=== PATIENT | female | born 1940 | race Caucasian/White ===

== ENCOUNTER 2020-10-14 14:08 | Emergency (ER) | payer OTHER ==
[~2020-10-14] VITALS: Ht 167.6 cm; Wt 82.4 kg
--- NOTE | ~2020-10-14 | EMS ---
[address] [address] EMS Patient Care Report Name: SILVANO BULL Room #: DEP MARIO Velasquez#: [id number] Admission: 10/14/20 Attend Phys: Discharge: 10/14/20 Date of : 36 Report #: [id number] THIS REPORT FOR: //name// Report Transmitted: 10/19/2020 09:43 EMS Care Summary [facility] Incident [id number] @ 10/14/2020 13:27 Incident Location [address]/[place] [address] Patient SILVANO BULL Female, 80 Years 1940 Patient Address [address]/[place] [address] Patient History Cardiac Arrythmia,Congestive Heart Failure (CHF),Seizures,Stroke/CVA,Alzheimer's,TIA, Patient Allergies No known allergies, Patient Medications Carvedilol, Memantine, Chief Complaint SEIZURE Disposition Transported No Lights/Creole Dispatch Reason Convulsions/Seizure Transported To [facility] Narrative [facility] M2 DISPATCHED TO ADDRESS LISTED BELOW FOR SEIZURES. [address] [address] EMS Patient Care Report Name: SILVANO BULL Room #: DEP Eva#: [id number] Admission: 10/14/20 Attend Phys: Discharge: 10/14/20 Date of : 36 Report #: [id number] ON SCENE. PT CONTACT IN UPSTAIRS BEDROOM, LAYING SUPINE ON BED. PT IS ALER TO SELF, CONFUSED AND LETHARGIC.BREATHING-REGULAR,NON LABORED.SKIN-[employer]. DAUGHTER OF PT IS PRESENT AND REPORT PT WAS BEING FED BREAKFAST WHEN HER ARM BEGAN TO SHAKE AND HER EYES ROLLED IN THE BACK OF HER HEAD AND SHE LAID DOWN ON THE BED AND 911 WAS ACTIVATED. DAUGHTER REPORTS PT DID NOT HAVE FULL BODY CONVULSIONS AND THE SHAKING IN HER ARM STOPPED. 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 DAUGHTER ADVISES PT IS NORMALLY CONFUSED AND ALERT TO SELF AND IS ACTING APPROPRIATELY NOW. DAUGHTER REQUESTS PT BE TRANSPORTED TO [facility] FOR FURTHER EVALUATION. PT IS ALERT DURING TRANSPORT AND RESTED ON COT DURING TRANSPORT. SEE ASSESSMENT TAB SEIZURE. DISPATCHED.ON SCENE. PT CONTACT.PRIMARY ASSESSMENT. VITAL SIGNS ASSESSED.PT CARRIED VIA PT LIFT TARP DOWN THE STAIRS TO THE LIVING ROOM WHERE COT IS LOCATED. PT IS SECURED ON COT IN SEMI FOWLERS POSITION WITH ALL SEAT BELTS INTACT.COT TRANSFERRED TO AND SECURED IN M2. ENROUTE TO DEST.VITAL SIGNS AND ECG MONITORED. BG ASSESSED WITH READING OF 157. RADIO REPORT TRANSMITTED TO ER WITH NO ORDERS. AT DEST.COT REMOVED AND TRANSFERRED TO ER RM. PT TRANSFERRED VIA SHEET DRAG TO AND SECURED IN BED WITH RAILS INTACT. REPORT TO MIKE.EOR Initial Vitals @13:50P: 66,R: 16,BP: 143/69,GCS: 14,Glucose: 157,CO: 0,SpO2: 95,Revised Trauma: 12,PR Suspected: false @13:37P: 62,R: 14,BP: 131/67,GCS: 14,SpO2: 98,Revised Trauma: 12, Assessments @13:35MENTAL:Confused,SKIN:HEENT:Head/Face: No Abnormalities,Eyes: No Abnormalities,Neck/Airway: No Abnormalities,LUNG SOUNDS:General: No Abnormalities,Left Upper: No Abnormalities,Right Upper: No Abnormalities,Left Lower: No Abnormalities,Right Lower: No Abnormalities,ABDOMEN:General: No Abnormalities,Left Upper: No Abnormalities,Right Upper: No Abnormalities,Left Lower: No Abnormalities,Right Lower: No Abnormalities,PELVIS//GI:No Abnormalities,EXTREMITIES:Left Arm: No Abnormalities,Right Arm: No Abnormalities,Left Leg: No Abnormalities,Right Leg: No Abnormalities,PULSE:NEURO:No Abnormalities,@13:58MENTAL:Confused,SKIN:HEENT:LUNG SOUNDS:ABDOMEN:PELVIS//GI:EXTREMITIES:PULSE:NEURO: Impression Seizures without status epilepticus [address] [address] EMS Patient Care Report Name: SILVANO BULL Room #: DEP Eva#: [id number] Admission: 10/14/20 Attend Phys: Discharge: 10/14/20 Date of : 36 Report #: [id number] Procedures @13:35ALS AssessmentResponse: UnchangedSucceeded@13:40StretcherResponse: Unchanged@13:483-Lead ECGResponse: UnchangedSucceeded Timeline 13:27,Call Received 13:27,Dispatched 13:27,Psap Call 13:30,En Route 13:33,On Scene 13:35,At Patient 13:35,ALS Assessment,Response: UnchangedSucceeded, 13:37,BP: 131/67 M,PULSE: 62,RR: 14 R,SPO2: 98 Ox,ETCO2: ,BG: ,PAIN: ,GCS: 14, 13:40,Stretcher,Response: Unchanged 13:45,Depart Scene 13:48,3-Lead ECG,Response: UnchangedSucceeded, 13:50,BP: 143/69 M,PULSE: 66,RR: 16 R,SPO2: 95 Ox,ETCO2: ,B,PAIN: ,GCS: 14, 14:04,At Destination 14:48,Call Closed Disclaimer v1.1 Copyright 2020 [employer], [employer] This EMS Care Summary contains data elements from the applicable legal record (which may be displayed differently). It is designed to provide pertinent information for the following purposes: continuity of care, clinical quality, and state data reporting. The complete legal record is available to ED staff and administrators of the receiving hospital in [employer]s Patient Tracker. All data is provided "as is."
[2020-10-14 14:39] LABS: ABSOLUTE NEUTROPHILS 1.8 thou/uL (1.4-8.2); BASOPHILS 0.8 % (0.0-2.0); EOSINOPHILS 1.3 % (0.0-3.0); HEMATOCRIT 40.7 % (37.0-47.0); HEMOGLOBIN 13.3 gm/dL (12.0-15.0); LYMPHOCYTES 53.9 % (24.0-44.0); MCH 30.5 pg (26.0-34.0); MCHC 32.7 g/dL (28.0-37.0); MCV 93.3 fL (80.0-100.0); MONOCYTES 7.3 % (1.0-8.0); PLATELET COUNT 211 thou/uL (150-400); POLYS 36.7 % (36.0-66.0); RBC 4.36 mil/uL (4.20-5.00); RDW 13.6 % (10.5-14.5)
[2020-10-14 14:49] LABS: CALCIUM 9.6 mg/dL (8.5-10.1); POTASSIUM 4.4 mmol/L (3.5-5.1)
[2020-10-14 14:55] LABS: TOTAL BILIRUBIN 0.3 mg/dL (0.2-1.0); TOTAL PROTEIN 7.3 g/dL (6.4-8.2)
[2020-10-14 16:59] LABS: URINE BILIRUBIN NEGATIVE (Negative); URINE BLOOD NEGATIVE (Negative); URINE CLARITY CLEAR; URINE COLOR YELLOW; URINE GLUCOSE-RANDOM* NEGATIVE (Negative); URINE KETONES NEGATIVE (Negative); URINE LEUKOCYTES-REFLEX NEGATIVE (Negative); URINE NITRITE-REFLEX NEGATIVE (Negative); URINE PROTEIN (DIPSTICK) NEGATIVE (Negative); URINE SPECIFIC GRAVITY 1.025 (1.005-1.035); URINE UROBILINOGEN 0.2 E.U./dl (0.2-1.0)
[2020-10-14 20:48] VITALS: BP 133/78
--- NOTE | 2020-10-15 07:15 | EKG ---
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 10/15/20 0715 1432 1432 Zac Gibbs MD, FACC /EPI
== END 2020-10-14 20:49 | disposition home or self-care (01) ==
LOC: ER 14:08
PROVIDERS: Student in an Organized Health Care Education/Training Program
DX: R56.9 Unspecified convulsions (principal); Z20.822 Contact with and (suspected) exposure to COVID-19